=== PATIENT | female | born 1950 | race Caucasian/White ===

== ENCOUNTER 2016-11-02 04:10 | Emergency (ER) | payer MEDICARE ==
[2016-11-02] MEDS ORDERED: MAG HYDROX/AL HYDROX/SIMETH SUSP 30 ML UDCUP PO ONE (04:49)
[2016-11-02] MEDS ORDERED: METOCLOPRAMIDE HCL ORAL SOLN 10 MG/10 ML UDCUP PO ONE (04:49)
[2016-11-02] MEDS ORDERED: LIDOCAINE 2% VISCOUS SOLN 20 ML UDCUP PO ONE (04:49)
[2016-11-02] MEDS ORDERED: ASPIRIN 81 MG TABLET, CHEWABLE PO ONE (04:50)
--- NOTE | 2016-11-02 04:53 | ER Document Report ---
ED Medical Screen (RME) - General Chief Complaint: Chest Pain Stated Complaint: CHEST PAIN Time Seen by Provider: 11/02/16 04:49 Notes: Patient is a 66-year-old female who comes emergency department for chief complaint of chest pains. Symptoms started yesterday, were actually worse yesterday, has been intermittent today. She states she took famotidine yesterday and had improvement of symptoms. She states also feels weak. She smokes. Past medical history of hypertension, GERD. Denies history of CA. Denies nausea or vomiting. TRAVEL OUTSIDE OF THE [place] IN LAST 30 DAYS: No - Related Data Allergies/Adverse Reactions: No Known Allergies Allergy (Unverified 11/02/16 04:22) Past Medical History Renal/ Medical History: Denies: Hx Peritoneal Dialysis Physical Exam - Vital signs Vitals: Temp Pulse Resp BP Pulse Ox 97.7 F 79 20 147/87 H 99 11/02/16 04:19 11/02/16 04:19 11/02/16 04:19 11/02/16 04:19 11/02/16 04:19 - Respiratory Respiratory status: No respiratory distress Breath sounds: Normal. No: Decreased air movement, Wheezing - Cardiovascular Rhythm: Regular. No: Tachycardia, Bradycardia Heart sounds: Normal auscultation, S1 appreciated, S2 appreciated Murmur: No - Abdominal Tenderness: Tender - mild epigastric tenderness Course - Vital Signs Vital signs: Temp Pulse Resp BP Pulse Ox 97.7 F 79 18 140/85 H 99 11/02/16 04:19 11/02/16 04:19 11/02/16 04:31 11/02/16 04:31 11/02/16 04:31
[2016-11-02 04:57] LABS: ABSOLUTE EOSINOPHILS # (AUTO) 0.1 10^3/uL (0.0-0.6); ABSOLUTE LYMPHOCYTES (AUTO) 2.2 10^3/uL (0.5-4.7); ABSOLUTE MONOCYTES (AUTO) 0.4 10^3/uL (0.1-1.4); ABSOLUTE NEUT (AUTO) 2.5 10^3/uL (1.7-8.2); BASOPHILS % (AUTO) 0.8 % (0-2); EOSINOPHILS % (AUTO) 2.5 % (0-6); HEMATOCRIT 44.5 % (36.0-47.0); HEMOGLOBIN 15.1 g/dL (12.0-15.5); HGB HCT DIFFERENCE 0.8; LYMPHOCYTES % (AUTO) 41.7 % (13-45); MEAN CORPUSCULAR HEMOGLOBIN 29.3 pg (27.0-33.4); MEAN CORPUSCULAR HGB CONC 33.9 g/dL (32.0-36.0); MEAN CORPUSCULAR VOLUME 87 fl (80-97); MONOCYTES % (AUTO) 8.1 % (3-13); RED BLOOD COUNT 5.14 10^6/uL (3.72-5.28); RED CELL DISTRIBUTION WIDTH 12.6 % (11.5-14.0); SEGMENTED NEUTROPHILS % (AUTO) 46.9 % (42-78); WHITE BLOOD COUNT 5.4 10^3/uL (4.0-10.5)
[2016-11-02 05:06] LABS: ALANINE AMINOTRANSFERASE 32 U/L (9-52); ALBUMIN 4.6 g/dL (3.5-5.0); ALKALINE PHOSPHATASE 74 U/L (38-126); ANION GAP 11 (5-19); ASPARTATE AMINO TRANSFERASE 34 U/L (14-36); BILIRUBIN,DIRECT 0.2 mg/dL (0.0-0.4); BILIRUBIN,TOTAL 0.9 mg/dL (0.2-1.3); BLOOD UREA NITROGEN 8 mg/dL (7-20); CALCIUM 9.7 mg/dL (8.4-10.2); CARBON DIOXIDE 29 mmol/L (22-30); CHLORIDE 99 mmol/L (98-107); CREATINE KINASE 119 U/L (30-135); GLUCOSE 107 mg/dL (75-110); LIPASE 100.7 U/L (23-300); POTASSIUM 3.6 mmol/L (3.6-5.0); SODIUM 138.6 mmol/L (137-145); TOTAL PROTEIN 7.7 g/dL (6.3-8.2)
--- NOTE | 2016-11-02 05:16 | RADIOLOGY REPORT (SQ) ---
EXAM DESCRIPTION: CHEST SINGLE VIEW COMPLETED DATE/TIME: 11/02/2016 5:02 am REASON FOR STUDY: chest pain COMPARISON: None. EXAM PARAMETERS: NUMBER OF VIEWS: One view. TECHNIQUE: Single frontal radiographic view of the chest acquired. RADIATION DOSE: NA LIMITATIONS: None. FINDINGS: LUNGS AND PLEURA: No consolidation, pneumothorax or pleural effusion. MEDIASTINUM AND HILAR STRUCTURES: No masses. Contour normal. HEART AND VASCULAR STRUCTURES: Heart normal in size. No overt vascular congestion BONES: No acute findings. HARDWARE: None in the chest. IMPRESSION: No acute radiographic finding in the chest. TECHNICAL DOCUMENTATION: JOB ID: [id number]
[2016-11-02 05:17] LABS: CREATINE KINASE MB 1.52 ng/mL (<4.55)
[2016-11-02 05:24] LABS: TROPONIN I < 0.012 ng/mL
--- NOTE | 2016-11-02 06:26 | ER Document Report ---
ED General <YOMI ZIEGLER - Last Filed: 11/02/16 06:31> - General Mode of Arrival: Ambulatory Information source: Patient TRAVEL OUTSIDE OF THE [place] IN LAST 30 DAYS: No - HPI Onset: Other - Refer to HPI notes Similar symptoms previously: Yes Recently seen / treated by doctor: No <STEPHANIE SPARKS - Last Filed: 11/02/16 07:30> - General Chief Complaint: Chest Pain Stated Complaint: CHEST PAIN Time Seen by Provider: 11/02/16 06:05 Notes: This is a 66-year-old female presenting to the emergency department for some epigastric and chest pain. Patient does have a history of GERD or increased symptoms which worsened yesterday. Patient states she took famotidine yesterday which relieved her symptoms. Patient states her pain is exacerbated with eating steak and macaroni and cheese yesterday. Patient was given a GI cocktail and states her epigastric pain was relieved by this after about 10-15 minutes. 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 Patient denies any nausea, vomiting, or pain at time of exam. Patient has no cardiac family history. Patient also has a history of hypertension, hypercholesterolemia, and is a smoker. Patient has no known drug allergies. (STEPHANIE SPARKS) - Related Data Allergies/Adverse Reactions: No Known Allergies Allergy (Unverified 11/02/16 04:22) Past Medical History - General Information source: Patient - Social History Smoking Status: Current Every Day Smoker Chew tobacco use (# tins/day): No Frequency of alcohol use: Occasional Drug Abuse: None Family History: Other - dad-cancer, mom-PE and pulmonary vascular disease Patient has suicidal ideation: No Patient has homicidal ideation: No - Past Medical History Cardiac Medical History: Reports: Hx Hypercholesterolemia, Hx Hypertension GI Medical History: Reports: Hx Gastroesophageal Reflux Disease Past Surgical History: Reports: Hx Hysterectomy, Hx Orthopedic Surgery - rt foot , rt wrist - Immunizations Hx Diphtheria, Pertussis, Tetanus Vaccination: Yes <STEPHANIE SPARKS - Last Filed: 11/02/16 07:30> Review of Systems - Review of Systems Constitutional: No symptoms reported EENT: No symptoms reported Cardiovascular: See HPI Respiratory: No symptoms reported Gastrointestinal: See HPI Genitourinary: No symptoms reported Female Genitourinary: No symptoms reported Musculoskeletal: No symptoms reported Skin: No symptoms reported Hematologic/Lymphatic: No symptoms reported Neurological/Psychological: No symptoms reported -: Yes All other systems reviewed and negative <STEPHANIE SPARKS - Last Filed: 11/02/16 07:30> Physical Exam <YOMI ZIEGLER - Last Filed: 11/02/16 06:31> - Vital signs Interpretation: Normal <STEPHANIE SPARKS - Last Filed: 11/02/16 07:30> - Vital signs Vitals: Temp Pulse Resp BP Pulse Ox 97.7 F 79 20 147/87 H 99 11/02/16 04:19 11/02/16 04:19 11/02/16 04:19 11/02/16 04:19 11/02/16 04:19 - Notes Notes: GENERAL: Alert, interacts well. No acute distress. HEAD: Normocephalic, atraumatic. EYES: Appear normal. Pupils equal, round, and reactive to light. ENT: Moist mucus membranes, tongue midline. NECK: Full range of motion. Supple. Trachea midline. LUNGS: Clear to auscultation bilaterally, no wheezes, rales, or rhonchi. No respiratory distress. HEART: Regular rate and rhythm. No murmurs, gallops, or rubs. ABDOMEN: Soft, non-tender, no RUQ or epigastric tenderness. Non-distended. Normal bowel sounds. EXTREMITIES: Moves all 4 extremities spontaneously. Normal strength. No edema. NEUROLOGICAL: Alert and oriented x3. Normal speech. No focal neurological deficits. GSC 15. PSYCH: Normal affect, normal mood. SKIN: Warm, dry, normal turgor. No rashes or lesions noted. (STEPHANIE SPARKS) Course - Laboratory Result Diagrams: 11/02/16 04:43 11/02/16 04:43 - Diagnostic Test Radiology reviewed: Image reviewed, Reports reviewed - Chest x-ray is unremarkable - EKG Interpretation by Me EKG shows normal: Sinus rhythm, Comfort, Intervals, QRS Complexes. abnormal: ST-T Waves - Minimal anterolateral ST depression Rate: Normal - 74 Rhythm: NSR P Waves: PAT When compared to previous EKG there are: Previous EKG unavailable <YOMI ZIEGLER - Last Filed: 11/02/16 06:31> - Laboratory Result Diagrams: 11/02/16 04:43 11/02/16 04:43 <STEPHANIE SPARKS - Last Filed: 11/02/16 07:30> - Re-evaluation Re-evalutation: 11/02/16 06:31 Patient reports her discomfort had been ongoing since yesterday, got acutely worse 2 AM today. She reports complete relief of her discomfort within 10 minutes of drinking the GI cocktail. She does take Pepcid on a regular basis for her reflux problems. She is here visiting from [place] for the past month and does admit to dietary indiscretion. She has no history of coronary artery disease, there is no family history of early age onset coronary artery disease. (YOMI ZIEGLER) - Vital Signs Vital signs: Temp Pulse Resp BP Pulse Ox 97.7 F 79 16 109/61 97 11/02/16 04:19 11/02/16 04:19 11/02/16 06:01 11/02/16 06:01 11/02/16 06:01 Discharge <YOMI ZIEGLER - Last Filed: 11/02/16 06:31> <STEPHANIE SPARKS - Last Filed: 11/02/16 07:30> - Discharge Clinical Impression: Epigastric abdominal pain Gastroesophageal reflux disease Qualifiers: Esophagitis presence: esophagitis presence not specified Qualified Code(s): K21.9 - Gastro-esophageal reflux disease without esophagitis Condition: Stable Disposition: HOME, SELF-CARE Additional Instructions: Chest Pain of Unclear Cause: The exact cause of your chest pain isn't clear. Fortunately, there is no evidence of a dangerous medical condition. Further testing may be required to find the source of the pain. Most often, we find that this pain is coming from the chest wall -- the muscles or rib joints in the chest. But chest pain can come from the lung and lung lining, the esophagus, the heart valves or heart lining, and even the stomach or gallbladder. Rest. Eat lightly until the pain is gone. We may prescribe medicine for pain and inflammation. You should call the physician immediately if the pain radiates to the shoulder, jaw or arms; if you start to run a fever or develop a cough; or if you develop shortness of breath, or other new or alarming symptoms. Reflux Disease (GERD): Gastro-Esophageal Reflux Disease (GERD) is caused by stomach acid refluxing back up into the esophagus. The valve at the end of the esophagus may be weak. This is common in persons with a hiatal hernia. GERD symptoms can include indigestion, chest pain, heartburn, or food "sticking." Certain foods, alcohol, and aspirin can make GERD worse. Treatment depends on the severity. Usually, antacids or acid-suppressing medicines are used. When the esophagus is acutely inflamed, the physician will often prescribe membrane-protective drugs such as Carafate. Some patients benefit from medication such as Reglan that tightens the valve at the top of the stomach. Avoid those foods that bring on your symptoms. For many people, these foods are coffee, chocolate, onions, garlic, and carbonated drinks. Don't use alcohol, aspirin, caffeine, or tobacco. Don't eat late at night -- within 4 hours of bedtime. Don't over-eat. If necessary, elevate the head of your bed about 4 inches so that stomach acid will not roll up into your esophagus. Call the doctor if you develop severe chest pain, inability to swallow fluids, fever, or worsening symptoms. TAKE PRILOSEC OTC ONCE DAILY. EAT A BLAND DIET. TAKE ANTI-ACIDS BETWEEN MEALS AN AT BEDTIME. FOLLOW UP WITH A LOCAL MEDICAL DOCTOR IF NOT IMPROVING. RETURN TO THE EMERGENCY ROOM IF ANY NEW OR WORSENING SYMPTOMS. Telly Attestation: 11/02/16 06:29 I personally performed the services described in the documentation, reviewed and edited the documentation which was dictated to the scribe in my presence, and it accurately records my words and actions. (YOMI ZIEGLER) [employer] Documentation - Scribe Written by Telly:: Telly Cervantes, 11/02/2016 6:40 acting as scribe for :: Clementine <STEPHANIE SPARKS - Last Filed: 11/02/16 07:30>
[2016-11-02 06:48] VITALS: BP 109/61
--- NOTE | 2016-11-02 10:10 | EKG REPORT ---
SEVERITY:- ABNORMAL ECG - SINUS RHYTHM RIGHT ATRIAL ABNORMALITY MINIMAL ST DEPRESSION, ANTEROLATERAL LEADS : Confirmed by: Rashi Sepulveda MD 02-Nov-2016 10:09:12
== END 2016-11-02 06:45 | disposition home or self-care (01) ==
LOC: ER 04:10
DX: R10.13 Epigastric pain (principal); K21.9 Gastro-esophageal reflux disease without esophagitis; Z79.899 Other long term (current) drug therapy; R07.9 Chest pain, unspecified; R94.31 Abnormal electrocardiogram [ECG] [EKG]; I10 Essential (primary) hypertension; F17.200 Nicotine dependence, unspecified, uncomplicated
CPT/HCPCS: 93005; 99285; 36415; 82553; 82550; 83690; 85025; 80053; 84484; 71010; 93010; A9270 ×2; J3490